=== PATIENT | male | born 1985 | race Two or more races ===

== ENCOUNTER 2020-10-26 09:28 | Emergency (ER) | payer OTHER ==
[~2020-10-26] VITALS: Ht 180.3 cm; Wt 85.3 kg
[2020-10-26 09:36] VITALS: BP 118/77
--- NOTE | 2020-10-26 09:44 | NUR ---
ED Nurse Note: pt. is aaox4.ambulatory. Pt walked in to ED c/o laceration to right side of head yesterday at 0900. Per pt, a nail scrapped his head. Tdap is not up to date. no active s/s of acute resp distress noted
[2020-10-26] MEDS ORDERED: Bacitracin Oint UD TOPIC ONE ×2 (09:56→10:00)
[2020-10-26] MEDS ORDERED: Tetanus/Diptheria/Pertussis IM ONE ×2 (09:56→10:00)
[2020-10-26] MEDS ORDERED: BACITRACIN15 GM TOPIC (09:59)
[2020-10-26 10:05] VITALS: BP 118/77
--- NOTE | 2020-10-26 10:05 | NUR ---
ED Nurse Note: Pt cleared by ERMD for discharge. DC instructions/prescription was given and explained to pt and verbalized understanding of teachings. All medical deviecs such as ID band removed. Pt is AAO x4, ambulatory and left with all personal belongings.
--- NOTE | 2020-10-26 10:28 | Emergency Room Report ---
History of Present Illness General Chief Complaint: Laceration Source: Patient Present Illness HPI 35-year-old male presents for evaluation. States that yesterday morning he scraped his scalp on an loose nail. States it was bleeding initially but not at this time. Denies pain. Tetanus not up-to-date. Denies any other injuries. No other aggravating relieving factors. Denies any other associated symptoms Allergies: Coded Allergies: No Known Allergies (Unverified , 10/26/20) COVID-19 Screening Contact w/high risk pt: No Experienced COVID-19 symptoms?: No COVID-19 Testing performed ASSEMBLER: No - 06/21/20 COVID-19 Screening: Negative COVID-19 COVID-19 Testing Source: clinic Patient History Past Medical History: none Past Surgical History: none Pertinent Family History: none Social History: Denies: smoking, alcohol use, drug use Immunizations: UTD Reviewed Nursing Documentation: PMH: Agreed; PSxH: Agreed Nursing Documentation-PMH Past Medical History: No Stated History Review of Systems All Other Systems: negative except mentioned in HPI Physical Exam Vital Signs Date Time Temp Pulse Resp B/P (MAP) Pulse Ox O2 Delivery O2 Flow Rate FiO2 10/26/20 09:36 97.9 61 19 118/77 (91) 98 Room Air Sp02 EP Interpretation: reviewed, normal General Appearance: no apparent distress, alert, GCS 15, non-toxic Head: normocephalic, atraumatic Eyes: bilateral eye normal inspection, bilateral eye PERRL ENT: hearing grossly normal, normal pharynx, no angioedema, normal voice Neck: full range of motion, supple/symm/no masses Respiratory: chest non-tender, lungs clear, normal breath sounds, speaking full sentences Cardiovascular #1: regular rate, rhythm, no edema Cardiovascular #2: 2+ carotid (R), 2+ carotid (L), 2+ radial (R), 2+ radial (L), 2+ dorsalis pedis (R), 2+ dorsalis pedis (L) Gastrointestinal: normal bowel sounds, non tender, soft, non-distended, no guarding, no rebound Rectal: deferred Genitourinary: normal inspection, no CVA tenderness Musculoskeletal: back normal, normal range of motion, gait/station normal, non- tender Neurologic: alert, motor strength/tone normal, oriented x3, sensory intact, responsive, speech normal Psychiatric: judgement/insight normal, memory normal, mood/affect normal, no suicidal/homicidal ideation Reflexes: 3+ bicep (R), 3+ bicep (L), 3+ tricep (R), 3+ tricep (L), 3+ knee (R), 3+ knee (L) Skin: other - 1cm abrasion to scalp. no active bleeding Lymphatic: no adenopathy Medical Decision Making Diagnostic Impression: Primary Impression: Scalp abrasion Qualified Codes: S00.01XA - Abrasion of scalp, initial encounter ER Course Hospital Course 35-year-old male presents scraping his scalp on the loose nail yesterday Clinical course Patient placed on stretcher. After initial history and physical I ordered tetanus shot. There is no active bleeding. About 1 cm. I explained to patient that cannot be sutured at this time given age. Irrigated. Given tetanus. Bacitracin applied. Safe for discharge with close outpatient follow-up Diagnosis - scalp abrasion Stable and discharged to home with prescription for bacitracin. wound Care in structions given. Followup with PMD. Return to ED if any signs of infection develop Last Vital Signs Date Time Temp Pulse Resp B/P (MAP) Pulse Ox O2 Delivery O2 Flow Rate FiO2 10/26/20 10:05 97.9 61 19 118/77 98 Room Air Status: improved Disposition: HOME, SELF-CARE Condition: Stable Scripts Bacitracin (Bacitracin) 28.4 Gm Oint...g. 1 APPLIC TOPIC THREE TIMES A DAY, #28.4 GM Prov: Bobby Mills MD 10/26/20 Referrals: [facility] Patient Instructions: Abrasion, [id number] Bobby Mills MD Oct 26, 2020 10:28
== END 2020-10-26 10:05 | disposition home or self-care (01) ==
LOC: EMR 09:55
DX: S00.01XA Abrasion of scalp, initial encounter (principal); X58.XXXA Exposure to other specified factors, initial encounter; Y92.9 Unspecified place or not applicable; Z23 Encounter for immunization
CPT/HCPCS: 90471; 90715; 99282